=== PATIENT | female | born 1985 | race Caucasian/White ===

== ENCOUNTER → 2018-12-16 | Outpatient (CLI) | payer OTHER | LOC: MERGE 08:15 → FIMAGING 08:39 | PROVIDERS: ATTEND Advanced Practice Midwife | DX: O35.9XX0 Maternal care for (suspected) fetal abnormality and damage, unspecified, not applicable or unspecified (principal); O34.82 Maternal care for other abnormalities of pelvic organs, second trimester; Z3A.19 19 weeks gestation of pregnancy | CPT/HCPCS: 82106-90; 88291-90 ==

== ENCOUNTER → 2018-12-26 | Outpatient (CLI) | payer OTHER | LOC: FIMAGING 15:58 | PROVIDERS: ATTEND Obstetrics & Gynecology | PROC: 0U9130Z Drainage of Left Ovary with Drainage Device, Percutaneous Approach (ICD-10-PCS; principal; 2018-12-26) | DX: N83.202 Unspecified ovarian cyst, left side (principal) ==

== ENCOUNTER 2019-01-03 07:00 | Day surgery (SDC) | payer OTHER ==
--- NOTE | 2019-01-02 17:08 | PDGENHP ---
History and Physical History and Physical: HPI: Haritha Camejo is a 33yo that is approximately 2 weeks s/p D&E (@ 20wks due to T13) and was noted to have RPOC on ultrasound 12/31/18. On 12/19/18 she had D&E procedure in [facility]. She states procedure went well, but that she did have PPH (total blood loss per pt was 500mL)- we do not have records of this procedure. She has been bleeding since procedure, no decrease in bleeding has occurred. She denies any pain. She did have left ovarian cyst drained (1050mL) on 12/26/2018 by Cayla Syed- which was uncomplicated. Review of Systems: Constitutional: Denies any fever, chills, or fatigue HEENT: denies any visual changes, difficulty swallowing, hearing loss Cardiovascular: Denies any chest pain, palpitations, leg swelling Respiratory: denies any cough, wheezing, or shortness of breathe GI: Denies any nausea, vomiting, diarrhea, constipation : denies any dysuria, urgency, frequency; reports +vaginal bleeding Musculoskeletal: denies any muscle or bone pain Skin: denies any rashes Neuro: denies any headache, seizures, lightheadedness, dizziness, or loss of consciousness Psychiatric: denies any depression, anxiety, or SI/HI thoughts; reports sadness but appropriate 2/2 recent situation. HISTORY: Previous OB history: (pre eclampsia) and D&E 12/19/18 Past medical history: none Past surgical history: D&E (12/19/18), left cyst drainage 12/26/2018 Social: Denies any alcohol, tobacco, or drug use. to Connor, daughter 2yo ([place]) Family history: mother- heart disease Medications: PNV Allergies (list reaction): NKDA LABS: Rh: O+ ABS: Neg PHYSICAL EXAM: Constitutional: WN, A&Ox3 HEENT: normocephalic atraumatic, supple Skin: Warm, dry, intact Heart: RRR, no murmur Chest: CTA-B Abdomen: Soft, nontender, gravid SVE: deferred Extremities: no edema, negative homans sign Neuro: grossly normal Psych: normal affect 12/31/2018: US revealed Uterus possibly uterine septum Right EC 11mm with probable feeder vessel within upper EC Left EC complex fluid seen 6mm, no flow within left ovary - post cyst aspiration more complex today 5.5x3.3x5.5cm, no flow seen within but flow around ovary seen Assessment: * 33yo * s/p D&E (approx 2 weeks) * RPOC * Rh + Plan: * Admit to L&D * proceed with D&C with US guidance * Dr Jessica Gonzales aware/will consent pt prior to procedure H&P was completed after office visit - which was approximately 45 min, of which >50% of visit 30 min, was spent face to face with pt on direct counseling/ coordination of care.
[2019-01-03] MEDS ORDERED: LR 1,000 ML IV ONE (07:42)
[2019-01-03] MEDS ORDERED: DOXYCYCLINE HYCLATE 100 MG CAP/TAB PO ONE (07:42)
[2019-01-03] MEDS ORDERED: MIDAZOLAM 2 MG/2 ML VIAL IVP ONE (07:42)
--- NOTE | 2019-01-03 08:02 | PDANEPAE ---
ANE History of Present Illness for D&C. S/p D&E about 2 weeks ago with RPOC ANE Past Medical History - Cardiovascular History Hx Hypertension: No Hx Arrhythmias: No Hx Chest Pain: No Hx Coronary Artery / Peripheral Vascular Disease: No Hx CHF / Valvular Disease: No Hx Palpitations: No - Pulmonary History Hx COPD: No Hx Asthma/Reactive Airway Disease: No Hx Recent Upper Respiratory Infection: No Hx Oxygen in Use at Home: No Hx Sleep Apnea: No - Neurologic History Hx Cerebrovascular Accident: No Hx Seizures: No Hx Dementia: No - Endocrine History Hx Diabetes: No Hypothyroid: No Hyperthyroid: No Obesity: no - Renal History Hx Renal Disorders: No - Liver History Hx Hepatic Disorders: No - Neurological & Psychiatric Hx Hx Neurological and Psychiatric Disorders: No - Cancer History Hx Cancer: No - Congenital Disorder History Hx Congenital Disorders: No - GI History GERD: no Hx Gastrointestinal Disorders: No - Other Health History Other Health History: recent GI infection - Chronic Pain History Chronic Pain: No - Surgical History Prior Surgeries: D&E under local ANE Review of Systems Review of Systems: - Exercise capacity METS (RN): 4 METS ANE Patient History - Allergies Allergies/Adverse Reactions: No Known Allergies Allergy (Unverified 11/09/16 18:17) - Home Medications Home Medications: Iron 1 tab PO DAILY 11/10/16 [Last Taken Unknown] 1 tab PO DAILY 11/10/16 [Last Taken Unknown] - Smoking Hx Smoking Status: Never smoked Marijuana use: No - Alcohol Use Alcohol Use: Other (2 drinks/week) - Family Anes Hx Family Anes Hx: none ANE Labs/Vital Signs - Vital Signs Blood Pressure: 100/67 Heart Rate: 65 Respiratory Rate: 16 O2 Sat (%): 96 Height: 162.56 cm Weight: 59.24 kg ANE Physical Exam - Airway Neck exam: FROM Mallampati Score: Class 1 Mouth exam: normal dental/mouth exam - Pulmonary Pulmonary: clear to auscultation - Cardiovascular Cardiovascular: regular rate and rhythym - ASA Status ASA Status: II ANE Anesthesia Plan Anesthesia Plan: GA with mask
[2019-01-03] MEDS ORDERED: PROPOFOL 200 MG/20 ML VIAL ONE ×3 (08:14→09:32)
--- NOTE | 2019-01-03 08:15 | PDHPUP ---
History & Physical Update H&P update statement: This history and physical update is based on an assessment of the patient which was completed after admission or registration (within 24 hours), but prior to the surgery/procedure. H&P update: no change in patient's condition since H&P completed
[2019-01-03] MEDS ORDERED: ONDANSETRON 4 MG/2 ML VIAL IVP PRN (09:36)
[2019-01-03] MEDS ORDERED: HYDROCODONE/APAP 5/325 TAB PO PRN (09:36)
[2019-01-03] MEDS ORDERED: NALOXONE HCL 0.4 MG/ML INJ IVP PRN (09:36)
[2019-01-03] MEDS ORDERED: fentaNYL 100 MCG/2 ML INJ IVP PRN (09:36)
[2019-01-03] MEDS ORDERED: METHYLERGONOVINE MAL 0.2 MG/ML INJ ONE (09:42)
[2019-01-03] MEDS ORDERED: KETOROLAC 30 MG/1 ML SDV IVP ONE (10:21)
--- NOTE | 2019-01-03 10:29 | POSTOPPROG ---
Post Op Note Date of Operation: 01/03/19 Surgeon: Jessica Gonzales Anesthesiologist: Mario Higgins MD Anesthesia: IV Sedation (IV general) Pre-op Diagnosis: RPOCs after therapeutic TAB, Post-op Diagnosis: same Indication: persistent bleeding after TAB with 11mm EMT on u/s c/w RPOCs Procedure: dilation and currettage Findings: dil to 10.5 Lillian, #10 suction tip, tissue retrieved, ut filling - pit /meth Inf/Abcess present in the surg proc area at time of surgery?: No Depth: Organ Space EBL: 100-500 (200cc) Total fluids administered: 1300 Complications: none, just persistent slow filling of cavity, but caution with over-scraping and pit given IV and IM meth Specimen(s): RPOCs
--- NOTE | 2019-01-03 10:33 | POSTANESTH ---
Post Anesthetic Evaluation Cardiovascular Status: Normal, Stable Respiratory Status: Normal, Stable Level of Consciousness/Mental Status: Can Participate in Eval Pain Control: Adequate, Prn Tx Ordered Nausea/Vomiting Control: Adequate, Prn Tx Ordered Complications Possibly Related to Anesthesia: None Noted
--- NOTE | 2019-01-03 11:36 | GOP ---
[f rep st] OPERATIVE REPORT DATE OF OPERATION: 01/03/2019 SURGEON: Jessica Gonzales MD ANESTHESIA: IV general sedation. ANESTHESIOLOGIST: Mario Higgins MD. PREOPERATIVE DIAGNOSIS: Retained products of conception after a therapeutic . POSTOPERATIVE DIAGNOSIS: Retained products of conception after a therapeutic . PROCEDURE PERFORMED: Dilation and curettage. FINDINGS: INDICATIONS: The patient is a 33-year-old, G2, P1, A1, who is 2 weeks status post a therapeutic TAB in [place] due to a 20 week diagnosis of trisomy 13 confirmed on amnio. The patient's procedure was uncomplicated. However, the patient has had persistent post procedure bleeding. She had an ultrasound on December 31, which revealed evidence of retained tissue with a thickened endometrium on the right of 11 mm. The patient incidentally also had an enlarged left ovarian cyst that was drained by Interventional Radiology on December 26. The left ovary still had a complex cyst on December 31 of 5.5 cm. The patient was advised as to the option of repeating the procedure to remove any residual tissue and the patient was advised of the risks and benefits of surgery and the consent form signed. DESCRIPTION OF PROCEDURE: The patient was taken to the operating room where following satisfactory general IV sedation, the patient was placed in dorsal lithotomy position. The patient had received oral antibiotics prior to coming to the operating room. She had SCDs on her lower extremities for DVT prophylaxis. The patient's abdomen and perineum and vagina were prepped and the patient draped in the usual sterile manner for vaginal procedures. The patient was in dorsal lithotomy position. A sterile speculum was placed within the vagina and the cervix was grasped on the anterior with an atraumatic grasper. Gentle traction applied. Ultrasound was performed prior to starting the procedure and there was evidence of a moderate amount of free fluid and the uterus appeared to have a thickened lining. Careful dilation was performed with gentle traction on the cervix up to 10.5 Hegar dilator. A #10 tip was used on the suction machine and gentle suction was performed with multiple passes. There was a moderate amount of tissue removed. Following this, careful curettage was performed and there were continued tiny fragments removed. There was persistent filling of the cavity with bleeding, however, only scant areas of tissue retrieved and there was good uterine crie on the interior of the uterus. To minimize continued curetting, the patient was given IV Pitocin as well as methergine 0.2 mg IM. This was in hopes of preventing postprocedure intrauterine clots. The lining appears thin. Total IV fluids of the procedure, 1300. Estimated blood loss approximately 200 cc. Minimal bleeding at the end of surgery. The atraumatic grasper was removed from the cervix and there was no bleeding from this site. The patient was cleaned off and taken out of position. She was awoken and then taken to the recovery room in stable condition. There were no complications. If bleeding remains scant after the surgery, then we will give the patient postoperative Toradol for pain management. /[id number]/MODL MTDD
[2019-01-03 12:11] VITALS: BP 94/67
== END 2019-01-03 12:10 | disposition home or self-care (01) ==
LOC: FOBOP 07:00 → EDSTATUS 07:30 → FOBOP 12:10
PROVIDERS: ATTEND Advanced Practice Midwife
PROC: 10D17ZZ Extraction of Products of Conception, Retained, Via Natural or Artificial Opening (ICD-10-PCS; principal; 2019-01-03)
DX: O04.6 Delayed or excessive hemorrhage following (induced) termination of pregnancy (principal)
CPT/HCPCS: J1885; J2210; J2250; J2704